=== PATIENT | male | born 1985 | race Caucasian/White ===

== ENCOUNTER 2017-02-17 10:47 | Emergency (ER) | payer MEDICAID ==
[~2017-02-17] VITALS: Ht 172.7 cm; Wt 90.9 kg
[2017-02-17 11:05] VITALS: BP 128/77
[2017-02-17] MEDS ORDERED: IBUP-2071 PO (11:13)
== END 2017-02-17 13:53 | disposition home or self-care (01) ==
LOC: EMS 10:49
DX: K02.9 Dental caries, unspecified (principal); H92.01 Otalgia, right ear; R03.0 Elevated blood-pressure reading, without diagnosis of hypertension
CPT/HCPCS: 99283